=== PATIENT | female | born 1960 | race Caucasian/White ===

== ENCOUNTER 2023-06-03 17:44 | Emergency (ER) | payer MEDICARE ==
[~2023-06-03] VITALS: Ht 165.1 cm; Wt 134.3 kg
[~2023-06-03 17:44] MED LIST: BUSPIRONE HCL5 MG PO; FLOVENT DISKU100 MCG INH; FLUOXETINE HCL20 MG PO; GABAPENTIN300 MG PO; HYDROXYZINE HCL50 MG PO; LORAZEPAM0.5 MG PO; MELOXICAM15 MG PO; NORCO 5-325 TA1 EACH PO; OMEPRAZOLE20 MG PO; SUBOXONE 4 MG-1 EACH SL; TIZANIDINE HCL4 MG PO; TRAZODONE HCL100 MG PO; VENTOLIN HFA18 GM INH
--- OUTSIDE RECORDS SUMMARY | 2023-06-03 17:47 | XMS ---
PreManage Notification: CARLINE LONGO [employer]visor Events No recent Security Events currently on file [facility] There are no care providers on record at this time. Terence has no Care Guidelines for this patient. Ksenia VISIT COUNT (12 MO.) 1 MIKE Shelton TOTAL 1 NOTE: Visits indicate total known visits. ED/C VISIT TRACKING (12 MO.) 06/03/2023 17:44 MIKE Sanchez [place] TYPE: Emergency COMPLAINT: - SHORTNESS OF BREATH INPATIENT VISIT TRACKING (12 MO.) No inpatient visits to display in this time frame [email or web address]
[2023-06-03 18:32] LABS: BASOPHILS 0.4 % (0-2); EOSINOPHILS 0.4 % (0-6); HEMATOCRIT 36.4 % (35.0-50.0); LYMPHOCYTES 4.5 % (24-44); MCH 27.9 (27-36); MCHC 33.1 g/dl (30-36); MCV 84.3 fl (81-99); MONOCYTES 4.9 % (0-12); NEUTROPHILS 89.8 % (39-80); PLATELET COUNT 288 K/uL (140-440); RBC 4.32 M/ul (4.3-5.7); RDW 14.1 (10.5-15.0)
[2023-06-03 18:49] LABS: ALBUMIN 2.7 g/dL (3.4-5.0); ALBUMIN/GLOBULIN RATIO 0.53 (1.1-2.4); ANION GAP 16.5 (7-21); BILIRUBIN, TOTAL 0.6 ng/dL (0.2-1.0); BUN/CREATININE RATIO 11.71 (6.0-28.6); CALCIUM 9.2 mg/dL (8.5-10.1); CREATININE, SERUM 1.11 mg/dL (0.55-1.02); POTASSIUM 3.5 mmol/L (3.5-5.1); PROTEIN, TOTAL 7.8 g/dL (6.4-8.2)
[2023-06-03 18:57] LABS: LACTIC ACID, BLOOD 2.8 mmol/L (0.4-2.0)
[2023-06-03 19:07] LABS: BILIRUBIN, URINE NEGATIVE (negative); BLOOD/HGB, URINE MODERATE (Negative); KETONE, URINE TRACE (Negative); LEUK ESTERASE, URINE SMALL (negative); NITRITE, URINE NEGATIVE (negative)
[2023-06-03 19:15] LABS: RED BLOOD CELLS, URINE 21-40 /hpf (0-5); WHITE BLOOD CELLS, URINE 21-40 /HPF (0-5)
[2023-06-03 19:16] LABS: BACTERIA, URINE 1+ /hpf (negative); CASTS, URINE NONE SEEN \\lpf; COLLECTION TYPE, URINE CLEAN CATCH; CRYSTALS, URINE NONE SEEN (0-1+); EPITHELIAL CELLS, URINE SQUAMOUS 1+ /lpf (0-1+); REFLEX CULTURE, URINE Yes (No)
[2023-06-03 19:42] LABS: INFLUENZA B NAA NEGATIVE (NEGATIVE); RESPIRATORY SYNCYTIAL VIR NAA NEGATIVE (NEGATIVE)
[2023-06-03] MEDS ORDERED: HYDROCODON-ACE1 EA10 PO (20:51)
[2023-06-03] MEDS ORDERED: ONDANSETRON ODT8 MG PO (20:51)
[2023-06-03] MEDS ORDERED: CEFDINIR300 MG PO (20:51)
[2023-06-03 22:27] VITALS: BP 93/78
--- NOTE | 2023-06-05 11:54 | EKG ---
[facility] [address] [facility] [place] [address] Signed Sinus tachycardia Incomplete right bundle branch block Nonspecific ST abnormality Abnormal ECG When compared with ECG of 25-JUN-2018 11:09, Vent. rate has increased BY 44 BPM Confirmed by CAROLANN MORA MD ([id number]) on 06/05/2023 11:54:24 AM Electronically Signed By: CAROLANN MORA 06/05/23 1154 PATIENT NAME: CARLINE LONGO MIKE Electrocardiogram DATE OF : 64 PHYSICIAN: CAROLANN MORA REPORT #: [id number] REPORT IS CONFIDENTIAL AND NOT TO BE RELEASED WITHOUT AUTHORIZATION
== END 2023-06-03 22:10 | disposition home or self-care (01) ==
LOC: ED 17:44
PROVIDERS: Emergency Medicine
DX: A41.9 Sepsis, unspecified organism (principal); N12 Tubulo-interstitial nephritis, not specified as acute or chronic; E11.9 Type 2 diabetes mellitus without complications; E66.01 Morbid (severe) obesity due to excess calories; Z87.891 Personal history of nicotine dependence; Z88.0 Allergy status to penicillin; Z88.2 Allergy status to sulfonamides; Z88.1 Allergy status to other antibiotic agents; Z79.899 Other long term (current) drug therapy; Z20.822 Contact with and (suspected) exposure to COVID-19
CPT/HCPCS: 36415; 71045; 74177; 80053; 81001; 83605; 85025; 87040; 87088; 87502; 93005; 93010; 96374; 99285-25; A9270; C9803; J0696; J7030; Q9967; U0002

== ENCOUNTER 2024-08-30 08:57 | Emergency (ER) | payer MEDICARE, OTHER ==
[~2024-08-30] VITALS: Ht 165.1 cm; Wt 137.9 kg
[~2024-08-30 08:57] MED LIST changes: +CEFDINIR300 MG PO; +HYDROCODON-ACE1 EA10 PO; +ONDANSETRON ODT8 MG PO
[2024-08-30] MEDS ORDERED: METFORMIN HCL1000 MG PO (09:17)
[2024-08-30] MEDS ORDERED: DEXAMETHASONE SOD PHOS 10 MG/ML VIAL PO ONE (09:45)
[2024-08-30] MEDS ORDERED: ALBUTEROL SULFATE 0.083% 3 ML VIAL INH ONE (09:45)
[2024-08-30 10:15] LABS: CORONAVIRUS COVID-19 AG NEGATIVE (NEGATIVE); INFLUENZA A AG NEGATIVE (NEGATIVE); INFLUENZA B AG NEGATIVE (NEGATIVE)
[2024-08-30] MEDS ORDERED: BENZONATATE100 MG PO (10:34)
[2024-08-30] MEDS ORDERED: VENTOLIN HFA18 GM INH (10:35)
[2024-08-30 10:40] VITALS: BP 148/85
== END 2024-08-30 10:41 | disposition home or self-care (01) ==
LOC: ED 08:57
PROVIDERS: Emergency Medicine
DX: J04.0 Acute laryngitis (principal); I10 Essential (primary) hypertension; E11.9 Type 2 diabetes mellitus without complications; J44.89 Other specified chronic obstructive pulmonary disease; Z87.891 Personal history of nicotine dependence; Z88.0 Allergy status to penicillin; Z88.7 Allergy status to serum and vaccine; Z88.1 Allergy status to other antibiotic agents; Z88.2 Allergy status to sulfonamides; Z79.84 Long term (current) use of oral hypoglycemic drugs; Z79.51 Long term (current) use of inhaled steroids; Z79.899 Other long term (current) drug therapy
CPT/HCPCS: 36415; 71046; 99285-25; J1100